=== PATIENT | female | born 1990 | race Caucasian/White ===

== ENCOUNTER 2018-10-03 17:46 | Emergency (ER) | payer BC, OTHER ==
--- NOTE | 2018-10-03 18:41 | ERPHSYRPT ---
- History of Present Illness Historian: patient, family Exam Limitations: no limitations Patient Subjective Stated Complaint: Pain in LRQ since yesterday that has become increasingly worse, Triage Nursing Assessment: Pt walked into the ER, pain in LRQ around umbilicus, pain with palpatation, rates pain 4-8/10, pain began last night, hypertensive, pulses normal, nauseous, bowel movement today, bowel sounds heard in all 4 quadrants Timing/Duration: today Quality: cramping Abdominal Pain Onset Location: periumbilical Pain Radiation: no radiation Severity of Pain-Max: moderate Severity of Pain-Current: moderate Modifying Factors: Improves With: nothing Associated Symptoms: loss of appetite, nausea, No diarrhea Hx Tetanus, Diphtheria Vaccination/Date Given: No Hx Influenza Vaccination/Date Given: No Hx Pneumococcal Vaccination/Date Given: No <ELROY SÁNCHEZ - Last Filed: 10/03/18 18:53> <MEHRDAD ALAN - Last Filed: 10/03/18 21:56> - History of Present Illness Time Seen by Provider: 10/03/18 18:39 Physician History: Pain in LRQ since yesterday that has become increasingly worse, went to [facility] diagnosed with UTI and yeast infection, still abdominal pain continued. (GONZALO,ELROY) Allergies/Adverse Reactions: No Known Drug Allergies Allergy (Verified 10/03/18 18:35) Home Medications: Norgestimate-Ethinyl Estradiol [Sprintec 28 Day Tablet] 1 tab PO DAILY 10/03/18 [History] - Review of Systems Constitutional: No Fever, No Chills Eyes: No Symptoms Ears, Nose, & Throat: No Symptoms Respiratory: No Cough, No Dyspnea Cardiac: No Chest Pain, No Edema, No Syncope Abdominal/Gastrointestinal: Abdominal Pain, Nausea, Appetite Changes, No Vomiting, No Diarrhea Genitourinary Symptoms: No Dysuria Musculoskeletal: No Back Pain, No Neck Pain Skin: No Rash Neurological: No Dizziness, No Focal Weakness, No Sensory Changes Psychological: No Symptoms Endocrine: No Symptoms All Other Systems: Reviewed and Negative <SAUNDRA SÁNCHEZYESH - Last Filed: 10/03/18 18:53> - Past Medical History Pertinent Past Medical History: Yes Neurological History: No Pertinent History ENT History: No Pertinent History Cardiac History: No Pertinent History Respiratory History: No Pertinent History Endocrine Medical History: No Pertinent History Musculoskeletal History: No Pertinent History GI Medical History: No Pertinent History History: No Pertinent History Psycho-Social History: Anxiety Female Reproductive Disorders: No Pertinent History Other Medical History: HPV - Past Surgical History Past Surgical History: Yes Neuro Surgical History: No Pertinent History Cardiac: No Pertinent History Respiratory: No Pertinent History Gastrointestinal: No Pertinent History Genitourinary: No Pertinent History Musculoskeletal: No Pertinent History Female Surgical History: No Pertinent History Other Surgical History: FOOT SURGERY TUBES IN EARS - Social History Smoking Status: Current every day smoker How long have you smoked: 12 years Exposure to second hand smoke: Yes Drug Use: none Patient Lives Alone: No - Female History Hx Last Menstrual Period: 09/21/2018 Hx Now: No <GONZALO,ELROY - Last Filed: 10/03/18 18:53> - Physical Exam General Appearance: no apparent distress, alert Eye Exam: PERRL/EOMI, eyes nml inspection Ears, Nose, Throat Exam: normal ENT inspection, pharynx normal, moist mucous membranes Neck Exam: normal inspection, non-tender, supple, full range of motion Respiratory Exam: normal breath sounds, lungs clear, No respiratory distress Cardiovascular Exam: regular rate/rhythm, normal heart sounds Gastrointestinal/Abdomen Exam: soft, tenderness (right periumbilical area), No mass Back Exam: normal inspection, normal range of motion, No CVA tenderness, No vertebral tenderness Extremity Exam: normal inspection, normal range of motion, pelvis stable Neurologic Exam: alert, oriented x 3, cooperative, normal mood/affect, nml cerebellar function, sensation nml, No motor deficits Skin Exam: normal color, warm, dry SpO2: 100 <GONZALO,ELROY - Last Filed: 10/03/18 18:53> - Nursing Vital Signs Nursing Vital Signs: Initial Vital Signs Temperature 99.3 F 10/03/18 18:21 Pulse Rate 100 H 10/03/18 18:21 Blood Pressure 148/88 10/03/18 18:21 O2 Sat by Pulse Oximetry 100 10/03/18 18:21 Pain Scale Pain Intensity 6 - Course Nursing assessment & vital signs reviewed: Yes <GONZALO,ELROY - Last Filed: 10/03/18 18:53> - CT Exams Abdomen/Pelvis CT Interpretation: Tele-radiologist Report (CT abdomen and pelviscolon impression at least 2 discrete minimally complex right ovarian cyst. This could be further characterize with ultrasound if clinically necessary) <DAYANNAMEHRDAD CHENG - Last Filed: 10/03/18 21:56> Ordered Tests: Active Orders 24 hr Category Date Time Status IV Insertion STAT Care 10/03/18 19:56 Active ABDOMEN AND PELVIS W CONTRAST [CT] Stat Exams 10/03/18 19:56 Taken AMYLASE Stat Lab 10/03/18 18:48 Completed CBC W DIFF Stat Lab 10/03/18 18:48 Completed CMP Stat Lab 10/03/18 18:48 Completed HCG QUALITATIVE,SERUM Stat Lab 10/03/18 18:48 Completed LIPASE Stat Lab 10/03/18 18:48 Completed Lactic Acid Stat Lab 10/03/18 18:46 Completed UA W/RFX UR CULTURE Stat Lab 10/03/18 18:48 Completed Urine Triage Profile Stat Lab 10/03/18 18:48 Completed Medication Summary Discontinued Medications Generic Name Dose Route Start Last Admin Trade Name Chaitanyaq PRN Reason Stop Dose Admin Sodium Chloride 1,000 mls @ 999 mls/hr 10/03/18 19:56 10/03/18 21:15 Sodium Chloride 0.9% 1000 Ml IV 10/03/18 20:56 999 mls/hr .Q1H1M STA Administration Sodium Chloride Confirm 10/03/18 21:13 Sodium Chloride 0.9% 1000 Ml Administered 10/03/18 21:14 Dose 1,000 mls @ ud .ROUTE .STK-MED ONE Lab/Rad Data: Laboratory Result Diagrams 10/03/18 18:48 10/03/18 18:48 Laboratory Results 10/03/18 10/03/18 10/03/18 Range/Units 18:48 18:48 18:48 WBC (4.0-10.5) K/mm3 RBC (4.1-5.4) M/mm3 Hgb (12.0-16.0) gm/dl Hct (35-47) % MCV (78-100) fl MCH (26-32) pg MCHC (32-36) g/dl RDW (11.5-14.0) % Plt Count (150-450) K/mm3 MPV (6-9.5) fl Gran % (36.0-66.0) % Eos # (Auto) (0-0.5) Absolute Lymphs (auto) (1.0-4.6) Absolute Monos (auto) (0.0-1.3) Lymphocytes % (24.0-44.0) % Monocytes % (0.0-12.0) % Eosinophils % (0.00-5.0) % Basophils % (0.0-0.4) % Absolute Granulocytes (1.4-6.9) Basophils # (0-0.4) Sodium (137-145) mmol/L Potassium (3.5-5.1) mmol/L Chloride (98-107) mmol/L Carbon Dioxide (22-30) mmol/L Anion Gap (5-15) MEQ/L BUN (7-17) mg/dL Creatinine (0.52-1.04) mg/dL Estimated GFR ML/MIN Glucose (74-106) mg/dL Lactic Acid (0.4-2.0) Calcium (8.4-10.2) mg/dL Total Bilirubin (0.2-1.3) mg/dL AST (14-36) U/L ALT (0-35) U/L Alkaline Phosphatase (38-126) U/L Serum Total Protein (6.3-8.2) g/dL Albumin (3.5-5.0) g/dL Amylase (30-110) U/L Lipase (23-300) U/L Serum , Qual NEGATIVE (Negative) Urine Color YELLOW (YELLOW) Urine Appearance CLEAR (CLEAR) Urine pH 7.0 (5-6) Ur Specific [place] 1.020 (1.005-1.025) Urine Protein NEGATIVE (Negative) Urine Ketones NEGATIVE (NEGATIVE) Urine Blood NEGATIVE (0-5) Jimenez/ul Urine Nitrite NEGATIVE (NEGATIVE) Urine Bilirubin NEGATIVE (NEGATIVE) Urine Urobilinogen 4 (0-1) mg/dL Ur Leukocyte Esterase NEGATIVE (NEGATIVE) Urine WBC (Auto) 0-2 (0-5) /HPF Urine RBC (Auto) 0-2 (0-2) /HPF U Epithel Cells (Auto) RARE (FEW) /HPF Urine Bacteria (Auto) RARE (NEGATIVE) /HPF Urine Culture Reflexed NO (NO) Urine Glucose NEGATIVE (NEGATIVE) mg/dL Urine Opiates Level NEGATIVE (NEGATIVE) Ur Methadone NEGATIVE (NEGATIVE) Urine Barbiturates NEGATIVE (NEGATIVE) Ur Phencyclidine (PCP) NEGATIVE (NEGATIVE) Urine Amphetamine NEGATIVE (NEGATIVE) U Benzodiazepine Level NEGATIVE (NEGATIVE) Urine Cocaine NEGATIVE (NEGATIVE) Urine Marijuana (THC) NEGATIVE (NEGATIVE) 10/03/18 10/03/18 10/03/18 Range/Units 18:48 18:48 18:46 WBC 8.1 (4.0-10.5) K/mm3 RBC 4.42 (4.1-5.4) M/mm3 Hgb 13.8 (12.0-16.0) gm/dl Hct 40.7 (35-47) % MCV 92.1 (78-100) fl MCH 31.2 (26-32) pg MCHC 33.9 (32-36) g/dl RDW 12.6 (11.5-14.0) % Plt Count 208 (150-450) K/mm3 MPV 9.8 H (6-9.5) fl Gran % 67.3 H (36.0-66.0) % Eos # (Auto) 0.10 (0-0.5) Absolute Lymphs (auto) 2.03 (1.0-4.6) Absolute Monos (auto) 0.51 (0.0-1.3) Lymphocytes % 25.0 (24.0-44.0) % Monocytes % 6.3 (0.0-12.0) % Eosinophils % 1.2 (0.00-5.0) % Basophils % 0.2 (0.0-0.4) % Absolute Granulocytes 5.45 (1.4-6.9) Basophils # 0.02 (0-0.4) Sodium 139 (137-145) mmol/L Potassium 3.8 (3.5-5.1) mmol/L Chloride 107 (98-107) mmol/L Carbon Dioxide 25 (22-30) mmol/L Anion Gap 10.6 (5-15) MEQ/L BUN 12 (7-17) mg/dL Creatinine 0.65 (0.52-1.04) mg/dL Estimated GFR > 60.0 ML/MIN Glucose 105 (74-106) mg/dL Lactic Acid 0.8 (0.4-2.0) Calcium 9.1 (8.4-10.2) mg/dL Total Bilirubin 0.60 (0.2-1.3) mg/dL AST 20 (14-36) U/L ALT 16 (0-35) U/L Alkaline Phosphatase 56 (38-126) U/L Serum Total Protein 7.2 (6.3-8.2) g/dL Albumin 4.2 (3.5-5.0) g/dL Amylase 67 (30-110) U/L Lipase 70 (23-300) U/L Serum , Qual (Negative) Urine Color (YELLOW) Urine Appearance (CLEAR) Urine pH (5-6) Ur Specific [place] (1.005-1.025) Urine Protein (Negative) Urine Ketones (NEGATIVE) Urine Blood (0-5) Jimenez/ul Urine Nitrite (NEGATIVE) Urine Bilirubin (NEGATIVE) Urine Urobilinogen (0-1) mg/dL Ur Leukocyte Esterase (NEGATIVE) Urine WBC (Auto) (0-5) /HPF Urine RBC (Auto) (0-2) /HPF U Epithel Cells (Auto) (FEW) /HPF Urine Bacteria (Auto) (NEGATIVE) /HPF Urine Culture Reflexed (NO) Urine Glucose (NEGATIVE) mg/dL Urine Opiates Level (NEGATIVE) Ur Methadone (NEGATIVE) Urine Barbiturates (NEGATIVE) Ur Phencyclidine (PCP) (NEGATIVE) Urine Amphetamine (NEGATIVE) U Benzodiazepine Level (NEGATIVE) Urine Cocaine (NEGATIVE) Urine Marijuana (THC) (NEGATIVE) <ELROY SÁNCHEZ - Last Filed: 10/03/18 18:53> - Progress Progress: improved <MEHRDAD ALAN - Last Filed: 10/03/18 21:56> - Progress Progress Note: 10/03/18 19:57 28-year-old white female with history of anxiety, HPV patient arrives with complaints of pain in her periumbilical and right-sided abdomen symptoms going on since last night. Patient apparently had been seen at [facility] diagnosed with a yeast infection and urinary tract infection patient states she's had nausea and loss of appetite no diarrhea no vomiting. Patient initially seen by Dr. Sánchez labs have been ordered which includes CBC CMP amylase lipase hCG lactate. His have been all normal. Patient continues to have pain in the periumbilical and right-sided abdominal area. Will go ahead and give patient normal saline [address] of the abdomen with contrast. Physical examination head atraumatic normocephalic. Eyes PERRLA EOMI fundi unremarkable. Ears TMs are intact bilaterally. Nose is clear. Throat is clear. Neck is supple. Lungs are clear. Heart regular rate rhythm without murmur. Abdomen periumbilical tenderness positive bowel sounds negative rebound negative masses. Extremities full range of motion pulse equal symmetrical two over four. Neuro cranial nerves II through XII are intact DTRs symmetrical two over four Susanna Coma Scale is 15. 10/03/18 21:[address] of the abdomen and pelvis remarkable for at least 2 history minimally complex right ovarian cysts. These could be further characterize with ultrasound if clinically necessary. I have offered the patient Toradol for pain she really doesn't want any. She states she would prefer to go home take Advil or Tylenol for pain. Will discharge patient. Impression 1 abdominal pain. 2 ovarian cysts. (MEHRDAD ALAN) <ELROY SÁNCHEZ - Last Filed: 10/03/18 18:53> - Departure Departure Disposition: Home Critical Care Time: No <MEHRDAD ALAN - Last Filed: 10/03/18 21:56> - Departure Clinical Impression: Abdominal pain Qualifiers: Abdominal location: periumbilical Qualified Code(s): R10.33 - Periumbilical pain Ovarian cyst Qualifiers: Laterality: right Qualified Code(s): N83.201 - Unspecified ovarian cyst, right side Condition: Fair Referrals: ELRYO SÁNCHEZ MD [Primary Care Provider] - Additional Instructions: Return home. Plenty of fluids, clear fluids only 24-48 hours if abdominal pain. Advil every 6 hours or Tylenol every 4 hours as needed for pain. Followup with your family . Return for acute distress or for severe symptoms.
[2018-10-03 18:53] LABS: BASOPHIL % 0.2 % (0.0-0.4); Basophil (Absolute #) 0.02 (0-0.4); Eosinophil % 1.2 % (0.00-5.0); Granulocyte Absolute (ANC) 5.45 (1.4-6.9); Granulocytes % 67.3 % (36.0-66.0); Hematocrit 40.7 % (35-47); Hemoglobin 13.8 gm/dl (12.0-16.0); Lymphocyte (Absolute #) 2.03 (1.0-4.6); Mean Cell Volume 92.1 fl (78-100); Mean Corpuscular Hemoglobin 31.2 pg (26-32); Mean Corpuscular Hgb Concent. 33.9 g/dl (32-36); Mean Platelet Volume 9.8 fl (6-9.5); Monocyte (Absolute #) 0.51 (0.0-1.3); Monocytes % 6.3 % (0.0-12.0); Platelet Count 208 K/mm3 (150-450); Red Blood Count 4.42 M/mm3 (4.1-5.4); Red Cell Distribution Width 12.6 % (11.5-14.0); White Blood Count 8.1 K/mm3 (4.0-10.5)
[2018-10-03 18:58] LABS: Appearance CLEAR (CLEAR); Bacteria RARE /HPF (NEGATIVE); Bilirubin NEGATIVE (NEGATIVE); Blood NEGATIVE Ery/ul (0-5); Epithelial Cells RARE /HPF (FEW); Glucose NEGATIVE (NEGATIVE); Ketones NEGATIVE (NEGATIVE); Leukocyte Esterase NEGATIVE (NEGATIVE); Nitrite NEGATIVE (NEGATIVE); Protein,Urine Dip NEGATIVE (Negative); RBC 0-2 /HPF (0-2); Urobilinogen 4 mg/dL (0-1); WBC 0-2 /HPF (0-5)
[2018-10-03 19:07] LABS: ALBUMIN 4.2 g/dL (3.5-5.0); ALKALINE PHOSPHATASE 56 U/L (38-126); AMYLASE 67 U/L (30-110); ANION GAP 10.6 MEQ/L (5-15); BLOOD UREA NITROGEN 12 mg/dL (7-17); CHLORIDE 107 mmol/L (98-107); Calcium 9.1 mg/dL (8.4-10.2); Carbon Dioxide 25 mmol/L (22-30); Creatinine 1 0.65 mg/dL (0.52-1.04); Glucose 105 mg/dL (74-106); LIPASE 70 U/L (23-300); Potassium 3.8 mmol/L (3.5-5.1); SGOT/AST 20 U/L (14-36); SGPT/ALT 16 U/L (0-35); SODIUM 139 mmol/L (137-145); Total Protein 7.2 g/dL (6.3-8.2)
[2018-10-03 19:10] LABS: Amphetamine,Urine NEGATIVE (NEGATIVE); Barbiturate,Urine NEGATIVE (NEGATIVE); Benzodiazepine,Urine NEGATIVE (NEGATIVE); Cocaine,Urine NEGATIVE (NEGATIVE); Methadone,Urine NEGATIVE (NEGATIVE); Opiate,Urine NEGATIVE (NEGATIVE); PCP,Urine NEGATIVE (NEGATIVE); THC,Urine NEGATIVE (NEGATIVE)
[2018-10-03] MEDS ORDERED: Sodium Chloride 0.9% 1000 ML 1,000 ML IV STA (19:56)
[2018-10-03] MEDS ORDERED: Sodium Chloride 0.9% 1000 ML 1,000 ML ONE (21:13)
[2018-10-03 22:27] VITALS: BP 108/83; PULSE 99; O2SAT 100
--- NOTE | 2018-10-04 14:34 | XRAY ---
Indication: Right abdomen/right lower quadrant pain. Nausea. Multiple contiguous axial images obtained through the abdomen and pelvis using 80 cc Isovue 370 contrast only. Comparison: None Lung bases are clear. Heart is not enlarged. Noncontrasted stomach and bowel loops appear nonobstructed. Normal appendix. At least 2 right ovary cysts, largest 2.4 cm. Tiny cul-de-sac fluid from ruptured/leaking cyst. No free air. Remaining liver, gallbladder, pancreas, spleen, adrenal glands, kidneys, ureters, bladder, uterus, and aorta appear unremarkable. No pathologic retroperitoneal lymphadenopathy. Osseous structures intact. Impression: 1. 2 right ovary cysts, largest 2.4 cm. Tiny cul-de-sac fluid presumed physiologic from rupture/leaking cyst. 2. Remaining CT abdomen/pelvis with contrast exam is negative. Comment: Preliminary interpretation was made by [facility]. No critical discrepancy. CTDI 14.8
== END 2018-10-03 22:28 | disposition home or self-care (01) ==
LOC: ED 17:46
DX: R10.33 Periumbilical pain (principal); N83.201 Unspecified ovarian cyst, right side
CPT/HCPCS: 36000; 36415; 74177; 80053; 80307; 81001; 81025; 82150; 83605; 83690; 85025; 96360; 99284

== ENCOUNTER 2021-09-04 06:26 | Day surgery (SDC) | payer OTHER ==
[2021-09-04] MEDS ORDERED: Lactated Ringers 1,000 ML IV SCH (07:00)
[2021-09-04] MEDS ORDERED: CEFAZOLIN 2 GM-D5W BAG** 2 GM/50 ML ML IV SCH (07:00)
[2021-09-04] MEDS ORDERED: Xylocaine-Mpf 2% 5 Ml Vial ONE (08:06)
[2021-09-04] MEDS ORDERED: SUBLIMAZE 100 MCG/2 ML ONE (08:06)
[2021-09-04] MEDS ORDERED: DIPRIVAN 200 MG/20 ML IV ONE (08:06)
[2021-09-04] MEDS ORDERED: Versed 2 MG/2 ML Injection ONE (08:06)
[2021-09-04] MEDS ORDERED: TORAdol 30 mg Injection ONE (08:49)
[2021-09-04 09:26] VITALS: O2SAT 99
[2021-09-04] MEDS ORDERED: NORCO 5/325 MG PO PRN (09:26)
[2021-09-04 10:09] VITALS: BP 139/67; PULSE 67
--- NOTE | 2021-09-05 08:33 | OP ---
SURGERY DATE/TIME: 09/04/2021 0811 PREOPERATIVE DIAGNOSIS: Abnormal uterine bleeding. POSTOPERATIVE DIAGNOSIS: Abnormal uterine bleeding. PROCEDURE: Hysteroscopy D&C with endometrial ablation using NovaSure. SURGEON: Kadeem Wills D.O. 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 ANESTHESIA: General. ESTIMATED BLOOD LOSS: Minimal. COMPLICATIONS: None. INDICATIONS: The risks, benefits, indications and alternatives of the procedure were reviewed with the patient prior to procedure. The patient understood the risk of infection, bleeding, bowel injury, bladder injury, ureteral injury, uterine perforation, pelvic infection associated with the surgery and desires to have this surgery as a possible means to alleviate her current medical condition. DESCRIPTION OF PROCEDURE AND FINDINGS: The patient is taken to the operating room, given general sedation, placed in dorsal lithotomy position, prepped and draped in the usual sterile fashion. A weighted speculum is then placed in the patient's vagina and the anterior lip of the cervix grasped with a single tooth tenaculum. Endocervical dilators were advanced through the endocervical canal as a means to dilate the cervix. From this point, a 5 mm hysteroscope was then placed in through the endocervical canal where visualization of the endometrial cavity appeared to be within normal limits with no gross abnormalities that were noted. From this point, the hysteroscope was removed and a curette was then placed into the fundus of the uterus and curettage was performed in all quadrants of the uterus retrieving a mild amount of endometrial tissue. From this point, the curette was then removed. Hemostasis was obtained. The NovaSure instrument was then placed through the endocervical region towards the fundal region, retracted approximately 1 cm and was measured at 6.5 cm and the width was 3.6 cm. After complete engagement, the machine was turned on for an ablative time of 47 seconds. After complete ablation, the instrument was removed from the uterine cavity. From this point all instruments were removed from the patient's vaginal region. The patient was then taken out of the dorsal lithotomy position, was taken out of anesthesia and was then taken to the recovery room in stable condition. All instruments and laps were accounted for x2.
== END 2021-09-04 10:17 | disposition home or self-care (01) ==
LOC: SDC 06:26
PROVIDERS: ATTEND Obstetrics & Gynecology
DX: N93.9 Abnormal uterine and vaginal bleeding, unspecified (principal)
CPT/HCPCS: 58563; 81025; J0690; J1885; J2250; J2704; J3010; A9270-GY

== ENCOUNTER 2024-02-03 06:48 | Emergency (ER) | payer BC ==
[2024-02-03 07:03] VITALS: TEMP 97.4
[2024-02-03 07:42] LABS: Absolute Neutrophil Ct (ANC) 4.03 x10^3/uL (1.56-6.13); BASOPHIL % 0.7 % (0.1-1.2); Basophil (Absolute #) 0.04 x10^3/uL (0.01-0.08); Eosinophil % 1.1 % (0.7-5.8); Eosinophil (Absolute #) 0.07 x10^3/uL (0.04-0.36); Hematocrit 42.9 % (34.1-44.9); Hemoglobin 14.9 g/dL (11.2-15.7); IMMATURE GRAN # 0.02 x10^3u/L (0.001-0.031); IMMATURE GRAN % 0.3 % (0.001-0.429); Lymphocyte (Absolute #) 1.53 x10^3/uL (1.18-3.74); Mean Cell Volume 91.3 fL (79.4-94.8); Mean Corpuscular Hemoglobin 31.7 pg (25.6-32.2); Mean Corpuscular Hgb Concent. 34.7 g/dL (32.2-35.5); Monocyte (Absolute #) 0.42 x10^3/uL (0.24-0.86); Monocytes % 6.9 % (4.7-12.5); Platelet Count 223 x10^3/uL (182-369); Red Cell Distribution Width 11.6 % (11.7-14.4); White Blood Count 6.1 x10^3/uL (3.98-10.04)
--- NOTE | 2024-02-03 07:51 | ERPHSYRPT ---
- History of Present Illness Time Seen by Provider: 02/03/24 07:20 Historian: patient Exam Limitations: no limitations Patient Subjective Stated Complaint: pt states she has been having chest pain since she woke up yesterday Triage Nursing Assessment: pt alert and oriented, answers questions approp. pt ambulates into room with steady gait noted. respirations nonlabored. skin warm and dry. heart rate 89 on monitor, sinus rhythm. Physician History: 33-year-old female history of hypertension presents to our ED for evaluation of chest pain radiating to her left shoulder. Chest pain started yesterday. Chest pain has been ongoing. It is not associated with activity. No nausea no vomiting no diaphoresis. Symptoms are mild to moderate in intensity. No specific worsening or improving factors. No trauma. Patient denies a history of the same. No chest wall tenderness. Patient voices no other complaints or concerns at this time. Portions of this note were created with voice recognition technology. There may be grammatical, spelling, punctuation or sound alike errors Timing/Duration: yesterday Activities at Onset: none Quality: aching Location: substernal Chest Pain Radiation: arm Severity of Pain-Max: moderate Severity of Pain-Current: mild Modifying Factors: Improves With: nothing Associated Symptoms: denies symptoms Prior Chest Pain/Cardiac Workup: no prior chest pain Nitro Today/Relief: no nitro taken today Aspirin Treatment Today: no aspirin today Allergies/Adverse Reactions: No Known Drug Allergies Allergy (Verified 02/03/24 07:03) Home Medications: Doxycycline Hyclate 100 mg [Vibramycin 100 MG] 100 mg PO BID 02/03/24 [Hi story] Labetalol HCl 100 mg [Trandate 100 MG] 100 mg PO BID 02/03/24 [History] Hx Tetanus, Diphtheria Vaccination/Date Given: No Hx Influenza Vaccination/Date Given: No Hx Pneumococcal Vaccination/Date Given: No Immunizations Up to Date: No Travel Risk - International Travel Have you traveled outside of the country in past 3 weeks: No - Emerging Infectious Disease Are you exhibiting symptoms associated with any current EIDs: No - Review of Systems Constitutional: No Symptoms Eyes: No Symptoms Ears, Nose, & Throat: No Symptoms Respiratory: No Symptoms Cardiac: No Symptoms Abdominal/Gastrointestinal: No Symptoms Genitourinary Symptoms: No Symptoms Musculoskeletal: No Symptoms Skin: No Symptoms Neurological: No Symptoms Psychological: No Symptoms Endocrine: No Symptoms Hematologic/Lymphatic: No Symptoms Immunological/Allergic: No Symptoms - Past Medical History Pertinent Past Medical History: Yes Neurological History: No Pertinent History ENT History: No Pertinent History Cardiac History: Hypertension Respiratory History: No Pertinent History Endocrine Medical History: No Pertinent History Musculoskeletal History: No Pertinent History GI Medical History: No Pertinent History History: No Pertinent History Psycho-Social History: Anxiety Female Reproductive Disorders: No Pertinent History Other Medical History: HPV - Past Surgical History Past Surgical History: Yes Neuro Surgical History: No Pertinent History Cardiac: No Pertinent History Respiratory: No Pertinent History Gastrointestinal: No Pertinent History Genitourinary: No Pertinent History Musculoskeletal: No Pertinent History Female Surgical History: Other Other Surgical History: FOOT SURGERY, TUBES IN EARS, uterina ablation - Female History Hx Last Menstrual Period: ablation Hx Now: No - Social History Smoking Status: Current every day smoker How long have you smoked: 15 yrs Exposure to second hand smoke: No Drug Use: none Patient Lives Alone: No - Social Determinants of Health Will the patient participate in the screening: Yes Do you worry about a steady place to live?: No Do you have any problems with any of the following?: No known problems In the past 12 months,have you had to go without utilities?: No Transportation Issues: No Has anyone in your support network made you feel unsafe?: No Have you or anyone in your house had to go without enough: No - Nursing Vital Signs Nursing Vital Signs: Initial Vital Signs Temperature 97.4 F 02/03/24 06:49 Pulse Rate 79 02/03/24 06:49 Respiratory Rate 16 02/03/24 06:49 Blood Pressure 140/74 02/03/24 06:49 O2 Sat by Pulse Oximetry 100 02/03/24 06:49 Pain Scale Pain Intensity 6 - Physical Exam General Appearance: no apparent distress, alert Eye Exam: PERRL/EOMI, eyes nml inspection Ears, Nose, Throat Exam: normal ENT inspection, moist mucous membranes Neck Exam: normal inspection, non-tender, supple, full range of motion Respiratory Exam: normal breath sounds, lungs clear, airway intact, No respiratory distress Cardiovascular Exam: regular rate/rhythm, normal heart sounds Gastrointestinal/Abdomen Exam: soft, No tenderness, No mass Back Exam: normal inspection, No CVA tenderness, No vertebral tenderness Extremity Exam: normal inspection, normal range of motion Neurologic Exam: alert, oriented x 3, cooperative, normal mood/affect, sensation nml, No motor deficits Skin Exam: normal color, warm, dry Lymphatic Exam: No adenopathy SpO2 Interpretation: normal SpO2: 100 O2 Delivery: Room Air - Course Nursing assessment & vital signs reviewed: Yes EKG Interpreted by Me: RATE (80), Sinus Rhythm, NORMAL AXIS, NORMAL INTERVALS, NORMAL QRS - Radiology Exams Chest X-ray Interpretation: Teleradiologist Report (No acute findings) Ordered Tests: Active Orders 24 hr Category Date Time Status Dyed Yarn Operator STAT Care 02/03/24 07:29 Active EKG-ER Only STAT Care 02/03/24 07:28 Active IV Insertion STAT Care 02/03/24 07:28 Active Pulse Oximetry (ED) STAT Care 02/03/24 07:28 Active CHEST 1 VIEW (PORTABLE) Stat Exams 02/03/24 08:30 Completed CBC W DIFF Stat Lab 02/03/24 06:55 Completed CMP Stat Lab 02/03/24 06:55 Completed D-DIMER QUANTITATIVE Stat Lab 02/03/24 06:55 Completed NT PRO BNPII Stat Lab 02/03/24 06:55 Completed TROPONIN Q4H Lab 02/03/24 06:55 Completed TROPONIN Q4H Lab 02/03/24 10:55 Completed TROPONIN Q4H Lab 02/03/24 15:30 Ordered Medication Summary Discontinued Medications Generic Name Dose Route Start Last Admin Trade Name Freq PRN Reason Stop Dose Admin Aspirin 324 mg 02/03/24 07:49 02/03/24 07:53 Aspirin 81 Mg Tab.Chew PO 02/03/24 07:50 324 mg STAT ONE Administration Aspirin Confirm 02/03/24 07:52 Aspirin 81 Mg Tab.Chew Administered 02/03/24 07:53 Dose 324 mg .ROUTE .STK-MED ONE Lab/Rad Data: Laboratory Result Diagrams 02/03/24 06:55 02/03/24 06:55 Laboratory Results 02/03/24 02/03/24 02/03/24 Range/Units 10:55 06:55 06:55 WBC (3.98-10.04) x10^3/uL RBC (3.93-5.22) x10^6/uL Hgb (11.2-15.7) g/dL Hct (34.1-44.9) % MCV (79.4-94.8) fL MCH (25.6-32.2) pg MCHC (32.2-35.5) g/dL RDW (11.7-14.4) % Plt Count (182-369) x10^3/uL MPV (9.4-12.3) fL Gran % (34.0-71.1) % Immature Gran % (Auto) (0.001-0.429) % Nucleat RBC Rel Count (0.00-0.2) % Eos # (Auto) (0.04-0.36) x10^3/uL Immature Gran # (Auto) (0.001-0.031) x10^3u/L Absolute Lymphs (auto) (1.18-3.74) x10^3/uL Absolute Monos (auto) (0.24-0.86) x10^3/uL Absolute Nucleated RBC (0.00-0.012) x10^3u/L Lymphocytes % (19.3-51.7) % Monocytes % (4.7-12.5) % Eosinophils % (0.7-5.8) % Basophils % (0.1-1.2) % Absolute Granulocytes (1.56-6.13) x10^3/uL Basophils # (0.01-0.08) x10^3/uL D-Dimer < 0.19 (0.0-0.50) mg/L Sodium (135-145) mmol/L Potassium (3.5-5.1) mmol/L Chloride (98-107) mmol/L Carbon Dioxide (22-30) mmol/L Anion Gap (5-15) MEQ/L BUN (7-17) mg/dL Creatinine (0.52-1.04) mg/dL Estimated GFR ML/MIN Glucose (74-106) mg/dL Calcium (8.4-10.2) mg/dL Total Bilirubin (0.2-1.3) mg/dL AST (14-36) U/L ALT (0-35) U/L Alkaline Phosphatase (38-126) U/L Troponin I < 0.012 < 0.012 (0.000-0.033) ng/mL NT-Pro-B Natriuret Pep (<300) pg/mL Serum Total Protein (6.3-8.2) g/dL Albumin (3.5-5.0) g/dL 02/03/24 02/03/24 Range/Units 06:55 06:55 WBC 6.1 (3.98-10.04) x10^3/uL RBC 4.70 (3.93-5.22) x10^6/uL Hgb 14.9 (11.2-15.7) g/dL Hct 42.9 (34.1-44.9) % MCV 91.3 (79.4-94.8) fL MCH 31.7 (25.6-32.2) pg MCHC 34.7 (32.2-35.5) g/dL RDW 11.6 L (11.7-14.4) % Plt Count 223 (182-369) x10^3/uL MPV 10.0 (9.4-12.3) fL Gran % 66.0 (34.0-71.1) % Immature Gran % (Auto) 0.3 (0.001-0.429) % Nucleat RBC Rel Count 0.0 (0.00-0.2) % Eos # (Auto) 0.07 (0.04-0.36) x10^3/uL Immature Gran # (Auto) 0.02 (0.001-0.031) x10^3u/L Absolute Lymphs (auto) 1.53 (1.18-3.74) x10^3/uL Absolute Monos (auto) 0.42 (0.24-0.86) x10^3/uL Absolute Nucleated RBC 0.00 (0.00-0.012) x10^3u/L Lymphocytes % 25.0 (19.3-51.7) % Monocytes % 6.9 (4.7-12.5) % Eosinophils % 1.1 (0.7-5.8) % Basophils % 0.7 (0.1-1.2) % Absolute Granulocytes 4.03 (1.56-6.13) x10^3/uL Basophils # 0.04 (0.01-0.08) x10^3/uL D-Dimer (0.0-0.50) mg/L Sodium 140 (135-145) mmol/L Potassium 4.1 (3.5-5.1) mmol/L Chloride 105 (98-107) mmol/L Carbon Dioxide 25 (22-30) mmol/L Anion Gap 13.8 (5-15) MEQ/L BUN 15 (7-17) mg/dL Creatinine 0.74 (0.52-1.04) mg/dL Estimated GFR 110.2 ML/MIN Glucose 108 H (74-106) mg/dL Calcium 9.6 (8.4-10.2) mg/dL Total Bilirubin 0.60 (0.2-1.3) mg/dL AST 22 (14-36) U/L ALT 20 (0-35) U/L Alkaline Phosphatase 61 (38-126) U/L Troponin I (0.000-0.033) ng/mL NT-Pro-B Natriuret Pep 92.0 (<300) pg/mL Serum Total Protein 7.0 (6.3-8.2) g/dL Albumin 4.3 (3.5-5.0) g/dL - Progress Progress: improved Air Movement: good Progress Note: 33-year-old female history of hypertension presents to our ED for evaluation of chest pain rating to her left shoulder. Patient's physical exam was essentially nonremarkable. Vital stable. Troponin negative x 2. D-dimer negative. Chest x-ray negative. EKG normal sinus rhythm. Aspirin administered. Patient reassessed. Patient is pain-free. Vital stable. Heart score is 2. No indication for further workup will discharge home. Patient agrees to follow-up with her primary care doctor within 48 hours for reevaluation. Portions of this note were created with voice recognition technology. There may be grammatical, spelling, punctuation or sound alike errors Complexity of problem addressed is moderate acute complicated no critical care time complex of data reviewed and analyzed is moderate. Test ordered chest reviewed results analyzed and correlated clinically with history and physical exam. Risk of complication or risk of morbidity/mortality patient management is low. Vital stable. Time spent to discharge patient approximately 10 minutes. Plan of care established for shared decision making. No social determinants of health present to impede follow-up. Portions of this note were created with voice recognition technology. There may be grammatical, spelling, punctuation or sound alike errors 02/03/24 11:54 02/03/24 11:55 Blood Culture(s) Obtained: No Antibiotics given: No Counseled pt/family regarding: lab results, diagnosis, need for follow-up, rad results - Departure Departure Disposition: Home Clinical Impression: Chest pain Condition: Stable Critical Care Time: No Referrals: ELROY SÁNCHEZ MD [Primary Care Provider] - Follow up/PCP as directed Additional Instructions: Discharge/Care Plan JOS ROSENBERG was seen on 02/03/24 in the Emergency Room. The patient was counseled regarding Diagnosis,Lab results, Imaging studies, need for follow up and when to return to the Emergency Room. Prescriptions given: Discharge Note I have spoken with the patient and/or caregivers. I have explained the patient's condition, diagnosis and treatment plan based on the information available to me at this time. I have answered the patient's and/or caregiver's questions and addressed any concerns. The patient and/or caregivers have as good understanding of the patient's diagnosis, condition and treatment plan as can be expected at this point. The vital signs have been stable. The patient's condition is stable and appropriate for discharge from the emergency department. The patient will pursue further outpatient evaluation with the primary care physician or other designated or consulting physician as outlined in the discharge instructions. The patient and/or caregivers are agreeable to this plan of care and follow-up instructions have been explained in detail. The patient and/or caregivers have received these instruction. The patient/and or caregivers are aware that any significant change in condition or worsening of symptoms should prompt an immediate return to this or the closest emergency department or call 911.
[2024-02-03] MEDS ORDERED: BABY ASPIRIN 81 MG CHEW ONE (07:52)
[2024-02-03] MEDS: BABY ASPIRIN 81 MG CHEW PO ONE (07:53)
[2024-02-03 08:04] LABS: ALBUMIN 4.3 g/dL (3.5-5.0); ANION GAP 13.8 MEQ/L (5-15); BILIRUBIN,TOTAL 0.6 mg/dL (0.2-1.3); Calcium 9.6 mg/dL (8.4-10.2); Creatinine 1 0.74 mg/dL (0.52-1.04); EST GLOMERULAR FILTRATION RATE 110.2 ML/MIN; Potassium 4.1 mmol/L (3.5-5.1)
--- NOTE | 2024-02-03 09:09 | XRAY ---
Indication: Chest pain. Comparison: None Portable chest demonstrates normal heart, lungs, and bony thorax.
[2024-02-03 11:34] VITALS: O2SAT 100
[2024-02-03 11:56] VITALS: BP 122/61; PULSE 72; RESP 15
== END 2024-02-03 11:59 | disposition home or self-care (01) ==
LOC: ED 06:48
DX: R07.9 Chest pain, unspecified (principal); I10 Essential (primary) hypertension; Z79.899 Other long term (current) drug therapy; Z72.0 Tobacco use
CPT/HCPCS: 36415; 71045; 80053; 83880; 84484; 85025; 85379; 93005; 93041; 94760; 99284; 99285; A9270-GY